=== PATIENT | female | born 1975 | race Caucasian/White ===

== ENCOUNTER 2020-08-02 11:59 | Outpatient (CLI) | payer OTHER | END 2020-08-02 18:50 | disposition home or self-care (01) | LOC: LAB 11:59 | DX: R10.9 Unspecified abdominal pain (principal); Z51.81 Encounter for therapeutic drug level monitoring ==

== ENCOUNTER 2020-08-10 08:14 | Outpatient (CLI) | payer OTHER | END 2020-08-10 08:22 | disposition home or self-care (01) | LOC: TOM 08:14 | PROVIDERS: ATTEND Surgery | DX: R10.2 Pelvic and perineal pain (principal); R10.9 Unspecified abdominal pain | CPT/HCPCS: 74177; Q9965 ==